=== PATIENT | male | born 1975 | race African-American/Black ===

== ENCOUNTER 2019-03-22 21:49 | Inpatient (IN) ==
[2019-03-22 22:28] LABS: Basophils % 0.4 % (0.0-0.8); Eosinophils % 0.3 % (0.00-10.9); Hematocrit 43.5 VOL% (42.0-52.0); Hemoglobin 14.6 GM/DL (14.0-18.0); Immature Granulocytes % 0.3 %; Immature Granulocytes Absolute 0.03 #; Lymphocytes # 3.7 10*3/uL (1.4-4.0); Lymphocytes % 40.9 % (21.2-54.2); Mean Corpuscular HGB Conc 33.6 GM/DL (32-36); Mean Corpuscular Volume 93.5 FL (87-102); Mean Platelet Volume 9.6 FL (9.6-12.0); Monocytes % 9.5 % (1.7-12.7); Neutrophils % 48.6 % (38.7-73.9); Platelet Count 251 T/CUMM (130-400); Red Blood Count 4.65 MC/CUMM (3.8-5.5); White Blood Count 9.1 T/CUMM (4-12)
[2019-03-22 22:41] LABS: PT Patient Result 10.9 SECS; Partial Thromboplastin Time 29.4 SECS (0-40)
[2019-03-22 22:49] LABS: Albumin 3.7 G/DL (3.4-5.0); Bilirubin,Total 0.5 MG/DL (0.2-1.0); Calcium 9.1 MG/DL (8.5-10.1); Osmolality,Calculated 274.8 MOS/KG (273-304); Total Protein 7.2 G/DL (6.4-8.3)
[2019-03-22] MEDS ORDERED: ASPIRIN CHEW 81 MG TABLET PO STA (23:38)
[2019-03-22] MEDS ORDERED: NITROGLYCERIN SL 0.4 MG TABLET SL STA (23:39)
[2019-03-22] MEDS ORDERED: ENOXAPARIN 30 MG/0.3 ML SYRINGE IV STA (23:46)
[2019-03-22] MEDS ORDERED: ASPIRIN 325 MG TABLET PO STA (23:50)
[2019-03-22] MEDS ORDERED: ASPIRIN 325 MG TABLET ONE (23:53)
[2019-03-23] MEDS ORDERED: HYDROmorphone 2 MG/1 ML VIAL ONE (00:14)
[2019-03-23] MEDS ORDERED: LIDOCAINE 1% 20 ML VIAL ONE (00:14)
[2019-03-23] MEDS ORDERED: MIDAZOLAM 2 MG/2 ML VIAL ONE (00:14)
[2019-03-23] MEDS ORDERED: HEPARIN/NACL 0.9% 2 UNITS/ML 1,000 ML IV ONE (00:14)
[2019-03-23] MEDS ORDERED: BIVALIRUDIN 250 MG VIAL IV ONE (01:02)
[2019-03-23 01:12] LABS: Apearance,Urine CLEAR (Clear); Bilirubin,Urine Negative (Negative); Blood, Urine Small mg/dL (Negative); Glucose,Urine (UA) Negative (Negative); Hyaline Casts,Urine 1 /LPF (0-3); Ketones,Urine Negative (Negative); Mucus,Urine Moderate /LPF (Occasional); Nitrite,Urine Negative (Negative); Protein,Urine 30 MG/DL; RBC,Urine 6 /HPF (0-4); Squamous Epithelial Cell,Urine Occasional /HPF (0-10); Urine Color Yellow (Yellow); Urine Specific Gravity 1.029 (1.001-1.035); WBC,Urine 1 /HPF (0-6)
[2019-03-23] MEDS ORDERED: TICAGRELOR 90 MG TABLET ONE (01:22)
[2019-03-23 01:26] LABS: Barbiturates Screen,Urine Negative (Negative); Benzodiazepines Screen,Urine Negative (Negative); Cannabinoid Screen,Urine Positive (Negative); Opiate Screen,Urine Negative (Negative); Phencyclidine Screen,Urine Negative (Negative)
[2019-03-23] MEDS ORDERED: ONDANSETRON 4 MG/2 ML VIAL IV PRN (01:42)
[2019-03-23] MEDS ORDERED: ZALEPLON 5 MG CAPSULE PO PRN (01:42)
[2019-03-23] MEDS ORDERED: SODIUM CHLORIDE 0.9% 1,000 ML IV SCH (02:00)
[2019-03-23] MEDS: METOPROLOL TARTRATE 50 MG TABLET PO SCH ×3 (02:36→20:37)
[2019-03-23 04:04] LABS: Calcium 8.5 MG/DL (8.5-10.1); Osmolality,Calculated 277.5 MOS/KG (273-304)
[2019-03-23 04:19] LABS: CKMB % 1.1 %
[2019-03-23 04:30] LABS: Troponin I 6.23 NG/ML (0.00-0.045)
[2019-03-23 08:09] LABS: CKMB % 1.3 %
[2019-03-23 08:16] LABS: Troponin I 6.58 NG/ML (0.00-0.045)
[2019-03-23] MEDS: ASPIRIN EC 81 MG TABLET PO SCH (08:41)
[2019-03-23] MEDS: LOSARTAN 50 MG TABLET PO SCH (08:41)
[2019-03-23] MEDS: TICAGRELOR 90 MG TABLET PO SCH ×2 (08:41→20:37)
[2019-03-23] MEDS: PANTOPRAZOLE 40 MG TABLET PO SCH (08:41)
[2019-03-23] MEDS: ATORVASTATIN 40 MG TABLET PO SCH (08:44)
[2019-03-23] MEDS: ACETAMINOPHEN 325 MG TABLET PO PRN (09:40)
[2019-03-23] MEDS ORDERED: NITROGLYCERIN DRIP 50 MG/250 ML BOTTLE IV PRN (15:15)
[2019-03-23] MEDS ORDERED: NITROGLYCERIN DRIP 50 MG/250 ML BOTTLE IV ONE (15:17)
[2019-03-23] MEDS ORDERED: MORPHINE 4 MG/1 ML VIAL IV ONE (15:47)
[2019-03-23] MEDS ORDERED: ACETAMINOPHEN 500 MG TABLET PO ONE (18:19)
[2019-03-23] MEDS: FAMOTIDINE 20 MG TABLET PO SCH (20:37)
[2019-03-24] MEDS: ASPIRIN EC 81 MG TABLET PO SCH (09:04)
[2019-03-24] MEDS: TICAGRELOR 90 MG TABLET PO SCH ×2 (09:04→21:52)
[2019-03-24] MEDS: FAMOTIDINE 20 MG TABLET PO SCH ×2 (09:04→21:52)
[2019-03-24] MEDS: METOPROLOL TARTRATE 50 MG TABLET PO SCH ×2 (09:04→21:52)
[2019-03-24] MEDS: LOSARTAN 50 MG TABLET PO SCH (09:04)
[2019-03-24] MEDS: PANTOPRAZOLE 40 MG TABLET PO SCH (09:04)
[2019-03-24] MEDS: ATORVASTATIN 40 MG TABLET PO SCH (09:05)
[2019-03-24] MEDS: ACETAMINOPHEN 325 MG TABLET PO PRN (09:07)
[2019-03-24] MEDS ORDERED: MAGNESIUM HYDROXIDE SUSP 30 ML UDCUP PO PRN (16:00)
[2019-03-24] MEDS ORDERED: diphenhydrAMINE CAP 25 MG CAPSULE PO PRN (16:00)
[2019-03-25 08:34] VITALS: BP 127/87
[2019-03-25] MEDS: LOSARTAN 50 MG TABLET PO SCH (08:45)
[2019-03-25] MEDS: TICAGRELOR 90 MG TABLET PO SCH (08:45)
[2019-03-25] MEDS: ATORVASTATIN 40 MG TABLET PO SCH (08:45)
[2019-03-25] MEDS: ASPIRIN EC 81 MG TABLET PO SCH (08:45)
[2019-03-25] MEDS: FAMOTIDINE 20 MG TABLET PO SCH (08:46)
[2019-03-25] MEDS: PANTOPRAZOLE 40 MG TABLET PO SCH (08:46)
[2019-03-25] MEDS: METOPROLOL TARTRATE 50 MG TABLET PO SCH (08:46)
== END 2019-03-25 09:59 | disposition home or self-care (01) | DRG 247 ==
LOC: N.ED 21:49 → N.EDINP 03-23 00:51 → N.CC 03-23 01:09 → N.TELES 03-24 18:15
PROVIDERS: ADMIT Internal Medicine Cardiovascular Disease; ATTEND Internal Medicine Cardiovascular Disease
PROC: CLCCHCL (ICD-10-PCS; 2019-03-23 00:45)

== ENCOUNTER 2019-04-07 05:45 | Observation (INO) ==
[2019-04-07] MEDS ORDERED: ENOXAPARIN 100 MG/ML SYRINGE SUBCUT STA (06:04)
[2019-04-07] MEDS ORDERED: ASPIRIN 325 MG TABLET PO STA (06:04)
[2019-04-07 06:14] LABS: Basophils # 0.1 10*3/uL (0.0-0.2); Basophils % 0.7 % (0.0-0.8); Eosinophils # 0.1 10*3/uL (0.0-0.87); Eosinophils % 0.7 % (0.00-10.9); Hematocrit 37.4 VOL% (42.0-52.0); Hemoglobin 12.4 GM/DL (14.0-18.0); Immature Granulocytes % 0.2 %; Immature Granulocytes Absolute 0.02 #; Lymphocytes # 3.7 10*3/uL (1.4-4.0); Lymphocytes % 45.7 % (21.2-54.2); Mean Corpuscular HGB Conc 33.2 GM/DL (32-36); Mean Corpuscular Volume 95.4 FL (87-102); Mean Platelet Volume 9.1 FL (9.6-12.0); Monocytes % 7.2 % (1.7-12.7); Neutrophils % 45.5 % (38.7-73.9); Platelet Count 300 T/CUMM (130-400); Red Blood Count 3.92 MC/CUMM (3.8-5.5); Red Cell Distribution Width 12.4 % (9.3-17.3); White Blood Count 8.2 T/CUMM (4-12)
[2019-04-07] MEDS ORDERED: ENOXAPARIN 60 MG/0.6 ML SYRINGE ONE (06:18)
[2019-04-07 06:24] LABS: INR 0.9; PT Patient Result 10.3 SECS; Partial Thromboplastin Time 26.4 SECS (0-40)
[2019-04-07 06:40] LABS: Alanine Aminotransferase 26 U/L (16-61); Albumin 3.4 G/DL (3.4-5.0); Alkaline Phosphatase 75 U/L (45-117); Aspartate Amino Transferase 23 U/L (0-37); Bilirubin,Total < 0.39 MG/DL (0.2-1.0); Blood Urea Nitrogen 11 MG/DL (7-18); Calcium 9.1 MG/DL (8.5-10.1); Glucose 95 MG/DL (74-106); Osmolality,Calculated 279.3 MOS/KG (273-304)
[2019-04-07 07:25] LABS: Barbiturates Screen,Urine Negative (Negative); Benzodiazepines Screen,Urine Negative (Negative); Cannabinoid Screen,Urine Positive (Negative); Opiate Screen,Urine Negative (Negative); Phencyclidine Screen,Urine Negative (Negative)
[2019-04-07] MEDS ORDERED: MAGNESIUM SULF RIDER 4 GM in PREMIX 1 EACH IV PRN (08:02)
[2019-04-07] MEDS ORDERED: LACTULOSE 20 GM/30 ML UDCUP PO PRN (08:02)
[2019-04-07] MEDS ORDERED: ACETAMINOPHEN 325 MG TABLET PO PRN (08:02)
[2019-04-07] MEDS ORDERED: MAGNESIUM SULF RIDER 2 GM in PREMIX 1 EACH IV PRN (08:02)
[2019-04-07] MEDS ORDERED: diphenhydrAMINE CAP 25 MG CAPSULE PO PRN (08:02)
[2019-04-07] MEDS ORDERED: MORPHINE 4 MG/1 ML VIAL IV PRN (08:02)
[2019-04-07] MEDS ORDERED: POTASSIUM CHLORIDE 20 MEQ TABLET PO PRN (08:02)
[2019-04-07] MEDS ORDERED: guaiFENesin/DM ER 600-30 MG TABLET PO PRN (08:02)
[2019-04-07] MEDS ORDERED: ONDANSETRON 4 MG/2 ML VIAL IV PRN (08:02)
[2019-04-07] MEDS ORDERED: ZALEPLON 5 MG CAPSULE PO PRN (08:02)
[2019-04-07] MEDS ORDERED: NICOTINE 14 MG/24 HR PATCH TRANSDERM PRN (08:05)
[2019-04-07] MEDS ORDERED: DICYCLOMINE 20 MG TABLET PO PRN (08:06)
[2019-04-07 09:54] LABS: Troponin I < 0.015 NG/ML (0.00-0.045)
[2019-04-07] MEDS: DOCUSATE SODIUM 100 MG CAPSULE PO SCH ×2 (10:10→21:34)
[2019-04-07] MEDS: POTASSIUM CHLORIDE 10 MEQ TABLET PO SCH (10:10)
[2019-04-07] MEDS: LOSARTAN 50 MG TABLET PO SCH (10:10)
[2019-04-07] MEDS: PANTOPRAZOLE 40 MG TABLET PO SCH (10:11)
[2019-04-07] MEDS: ATORVASTATIN 40 MG TABLET PO SCH (10:11)
[2019-04-07] MEDS: METOPROLOL TARTRATE 50 MG TABLET PO SCH ×2 (10:11→21:34)
[2019-04-07] MEDS: TICAGRELOR 90 MG TABLET PO SCH ×2 (10:11→21:34)
[2019-04-07] MEDS: ENOXAPARIN 40 MG/0.4 ML SYRINGE SUBCUT SCH (10:13)
[2019-04-07] MEDS: ASPIRIN EC 81 MG TABLET PO SCH (10:13)
[2019-04-07 11:58] LABS: Troponin I < 0.015 NG/ML (0.00-0.045)
[2019-04-07 15:52] LABS: Troponin I < 0.015 NG/ML (0.00-0.045)
[2019-04-08 03:41] LABS: Basophils % 0.4 % (0.0-0.8); Eosinophils % 0.4 % (0.00-10.9); Hematocrit 40.5 VOL% (42.0-52.0); Hemoglobin 13.3 GM/DL (14.0-18.0); Immature Granulocytes % 0.5 %; Immature Granulocytes Absolute 0.04 #; Lymphocytes # 3.1 10*3/uL (1.4-4.0); Lymphocytes % 41.7 % (21.2-54.2); Mean Corpuscular HGB Conc 32.8 GM/DL (32-36); Mean Corpuscular Volume 95.3 FL (87-102); Mean Platelet Volume 9.4 FL (9.6-12.0); Monocytes % 6.2 % (1.7-12.7); Neutrophils % 50.8 % (38.7-73.9); Platelet Count 307 T/CUMM (130-400); Red Blood Count 4.25 MC/CUMM (3.8-5.5); Red Cell Distribution Width 12.5 % (9.3-17.3); White Blood Count 7.4 T/CUMM (4-12)
[2019-04-08 04:02] LABS: Calcium 9.6 MG/DL (8.5-10.1); Osmolality,Calculated 279.4 MOS/KG (273-304); VLDL CHOLESTEROL 13.6 MG/DL
[2019-04-08 07:57] VITALS: BP 121/69
[2019-04-08] MEDS: POTASSIUM CHLORIDE 10 MEQ TABLET PO SCH (09:31)
[2019-04-08] MEDS: ASPIRIN EC 81 MG TABLET PO SCH (09:31)
[2019-04-08] MEDS: LOSARTAN 50 MG TABLET PO SCH (09:31)
[2019-04-08] MEDS: DOCUSATE SODIUM 100 MG CAPSULE PO SCH (09:31)
[2019-04-08] MEDS: TICAGRELOR 90 MG TABLET PO SCH (09:31)
[2019-04-08] MEDS: ATORVASTATIN 40 MG TABLET PO SCH (09:31)
[2019-04-08] MEDS: METOPROLOL TARTRATE 50 MG TABLET PO SCH (09:32)
[2019-04-08] MEDS: PANTOPRAZOLE 40 MG TABLET PO SCH (09:32)
[2019-04-08] MEDS: ENOXAPARIN 40 MG/0.4 ML SYRINGE SUBCUT SCH (09:33)
== END 2019-04-08 11:03 | disposition home or self-care (01) ==
LOC: N.ED 05:45 → N.EDINP 05:45 → N.TELES 08:45
PROVIDERS: ADMIT Internal Medicine Cardiovascular Disease; ATTEND Internal Medicine Cardiovascular Disease